=== PATIENT | female | born 1950 | race Caucasian/White ===

== ENCOUNTER 2017-01-11 09:54 | Emergency (ER) | payer MEDICARE ==
[~2017-01-11] VITALS: Ht 152.4 cm; Wt 54.4 kg
[2017-01-11 09:55] VITALS: BP 136/87
== END 2017-01-11 11:03 | disposition home or self-care (01) ==
LOC: ER 09:55
DX: K02.9 Dental caries, unspecified (principal)
CPT/HCPCS: 99283; A4606; Z7610